=== PATIENT | female | born 1980 | race Caucasian/White ===

== ENCOUNTER → 2021-11-22 | Day surgery (SDC) | payer OTHER ==
[~2021-11-22] MED LIST: BACTRIM DS TAB1 EACH PO; DEXAMETHASONE SOD PHOS 10 MG/1 ML VIAL ONE; FENTANYL CITRATE/PF 100MCG/2 ML INJ ONE; GLYCOPYRROLATE INJ 0.2 MG/ML VIAL ONE; KETOROLAC TROMETHAMINE 30 MG/ML VIAL ONE; LIDOCAINE 1% W/EPINEPHRINE 20 ML VIAL ONE; LIDOCAINE HCL 2% LOCAL INJ 5 ML SDV VIAL INJ ONE; METOCLOPRAMIDE HCL 10 MG/2ML VIAL ONE; MIDAZOLAM HCL 2 MG/2 ML VIAL ONE; NEOSTIGMINE 1 MG/ML 10ML VIAL ONE; ONDANSETRON HCL INJ 2MG/ML 2ML 2 MG/ML VIAL ONE; OXYMETAZOLINE HCL 0.05% NAS 1 SPRAY BTL ONE; POVIDONE IODINE 0.05% 0.05 % ML PO ONE; PROPOFOL IV EMULSION 10 MG/ML 20 ML VIAL ONE; ROCURONIUM BROMIDE 10 MG/ML 5ML VIAL IV ONE; SEVOFLURANE INHAL SOLN 250 ML PEN BTL ONE; SUGAMMADEX SODIUM 200 MG/2 ML VIAL IV ONE
[2021-11-22 09:55] VITALS: BP 102/65
== END | disposition home or self-care (01) ==
LOC: OR 05:38 → EDBD 07:30
PROVIDERS: ATTEND Otolaryngology Otolaryngology/Facial Plastic Surgery
DX: R22.0 Localized swelling, mass and lump, head (principal); Z88.6 Allergy status to analgesic agent; Z88.0 Allergy status to penicillin
CPT/HCPCS: 31525; 31622; 38510; 43191; 81025; 88304; J1100; J1885; J2001; J2250; J2405; J2704; J2710; J2765; J3010